=== PATIENT | male | born 1985 | race Two or more races ===

== ENCOUNTER 2016-07-05 22:48 | Emergency (ER) | payer OTHER ==
[2016-07-05 22:56] VITALS: BMI 25.0
--- NOTE | 2016-07-05 23:10 | PDOC ---
History of Present Illness - History of Present Illness Initial Comments: 07/05/16 23:32 The patient is a 30 year old male, with a significant past medical history of cluster headaches, who presents to the emergency department with persistent headaches followed by generalized weakness and dizziness for a few days. The patient denies any pain at this time, but reports his headaches as squeezing localized to the left side of his head with intermittent pressure behind his right eye. He also reports intermittent dizziness associated with his headaches , and states that he feels generally weak after the headache subsides. He denies photophobia. He reports experiencing similar headaches last summer, which he was evaluated for at [facility] and diagnosed with cluster headaches. He states he was referred to a neurologist and prescribed some medication. He denies ever making an appointment with the neurologist. He reports the medication significantly alleviated his headaches in the past and requests for a new prescription. He denies chest pain, shortness of breath. He denies fever, chills, nausea, vomit, diarrhea and constipation. He denies dysuria, frequency, urgency and hematuria. Allergies: NKDA Family Hx: migraines <Petrona Alejandro - Last Filed: 07/05/16 23:46> <Luis Eduardo Yanes - Last Filed: 07/05/16 23:50> - General Chief Complaint: Headache Stated Complaint: HEADACHE Time Seen by Provider: 07/05/16 23:10 Past History <Petrona Alejandro - Last Filed: 07/05/16 23:46> - Past Medical History Other medical history: cluster headaches - Psycho/Social/Smoking Cessation Hx Suicidal Ideation: No Smoking History: Current every day smoker Information on smoking cessation initiated: No <Luis Eduardo Yanes - Last Filed: 07/05/16 23:50> - Past Medical History Allergies/Adverse Reactions: Allergies Allergy/AdvReac Type Severity Reaction Status Date / Time Egg Derived Allergy Verified 07/05/16 22:54 peanut Allergy Verified 07/05/16 22:54 seafood Allergy Uncoded 07/05/16 22:54 Home Medications: Ambulatory Orders NK [No Known Home Medication] 07/05/16 Review of Systems - Review of Systems Able to Perform ROS?: Yes Comments:: 07/05/16 23:33 CONSTITUTIONAL: No fever, no chills, no fatigue EYES: No visual changes ENT: No ear pain, no sore throat CARDIOVASCULAR: No chest pain, no palpitations RESPIRATORY: No cough, no SOB GI: No abdominal pain, no nausea, no vomiting, no constipation, no diarrhea GENITOURINARY: No dysuria, no frequency, no hematuria MUSKULOSKELETAL: No backpain, no joint pain, no myalgias SKIN: No rash NEURO: (+) persistent headache <Petrona Alejandro - Last Filed: 07/05/16 23:46> *Physical Exam - Vital Signs Last Vital Signs Temp Pulse Resp BP Pulse Ox 97.6 F 85 16 105/67 99 07/05/16 22:55 07/05/16 22:55 07/05/16 22:55 07/05/16 22:55 07/05/16 22:55 - Physical Exam Comments: 07/05/16 23:33 CONSTITUTIONAL: Well-appearing; well-nourished; in no apparent distress HEAD: Normocephalic; atraumatic EYES: PERRL; EOM intact ENMT: External appears normal; normal oropharynx NECK: Supple; non-tender; no cervical lymphadenopathy CARD: Normal S1, S2; no murmurs, rubs, or gallops RESP: Normal chest excursion with respiration; breath sounds clear and equal bilaterally; no wheezes, rhonchi, or rales ABD: Soft, non-distended; non-tender; no palpable organomegaly, no palpable hernias EXT: Normal ROM in all four extremities; non-tender to palpation; distal pulses intact SKIN: Warm, dry, no rash <Petrona Alejandro - Last Filed: 07/05/16 23:46> - Vital Signs Last Vital Signs Temp Pulse Resp BP Pulse Ox 97.6 F 85 16 105/67 99 07/05/16 22:55 07/05/16 22:55 07/05/16 22:55 07/05/16 22:55 07/05/16 22:55 - Physical Exam Comments: NEURO: Cranial nerves II through XII are grossly intact; motor is 5 of 54; no pronation drift; gait is stable; negative Romberg; normal cerebellar function bilaterally. <Luis Eduardo Yanes - Last Filed: 07/05/16 23:50> Medical Decision Making - Medical Decision Making 07/05/16 23:49 Patient is a well-appearing 30-year-old male who presents with generalized weakness and intermittent dizziness after the resolution of a hemicranial headache that had lasted for 2 days. In the ER, patient is awake and alert, afebrile, with normal stable vital signs. Serial neurological exams reveal no focal deficits. There is no evidence of meningismus. Patient's symptoms are not consistent with worsening headache of his life as per patient. I do not suspect meningitis or subarachnoid hemorrhage at this time. Patient been seen and treated [facility] for similar symptoms several months previously but failed to follow-up at this time, there are no acute issues and patient is encouraged to hydrate himself aggressively and follow up with neurology promptly.. <Luis Eduardo Yanes - Last Filed: 07/05/16 23:50> *DC/Admit/Observation/Transfer - Attestations Scribe Attestion: 07/05/16 23:34 Documentation prepared by Petrona Alejandro, acting as medical records assistant for Luis Eduardo Yanes MD <Petrona Alejandro - Last Filed: 07/05/16 23:46> - Attestations Physician Attestion: 07/05/16 23:49 The documentation was prepared by the scribe under my direct supervision. I have reviewed the documentation which correctly represents the findings, medical decision-making and critical action taken by me. <Luis Eduardo Yanes - Last Filed: 07/05/16 23:50> Diagnosis at time of Disposition: Headache Qualifiers: Headache type: unspecified Headache chronicity pattern: episodic headache Intractability: not intractable Qualified Code(s): R51 - Headache - Discharge Dispostion Disposition: HOME Condition at time of disposition: Stable - Referrals Referrals: Garfield Coates MD [Staff Physician] - - Patient Instructions Printed Discharge Instructions: DI for Headache - Post Discharge Activity Work/School Note: Back to Work
[2016-07-05 23:41] VITALS: BP 126/61; PULSE 105; TEMP 98.3
== END 2016-07-05 23:40 | disposition home or self-care (01) ==
LOC: JER 22:48
DX: G44.009 Cluster headache syndrome, unspecified, not intractable (principal); F17.210 Nicotine dependence, cigarettes, uncomplicated
CPT/HCPCS: 99281-25

== ENCOUNTER 2022-11-27 20:06 | Emergency (ER) | payer OTHER ==
[2022-11-27 20:19] VITALS: BP 116/72; PULSE 67; RESP 18; TEMP 97; BMI 25.9
[2022-11-27 21:36] LABS: BASO % 0.5 % (0-2.0); EOS % 0.1 % (0-4.5); HEMATOCRIT 41.6 % (35.4-49); HEMOGLOBIN 13.6 GM/dL (11.7-16.9); LYMPH % 10.2 % (8-40); MCHC 32.7 g/dl (32.0-35.9); MEAN CELL VOLUME 91.7 fl (80-96); MEAN PLT VOLUME 8.5 fl (7.5-11.1); NEUT % 81.2 % (42.8-82.8); PLATELET COUNT 213 10^3/uL (134-434); RBC 4.54 M/mm3 (4.00-5.60); RDW 14.2 % (11.9-15.9); WHITE BLOOD COUNT 11.7 K/mm3 (4.0-10.0)
[2022-11-27 22:19] LABS: CHLORIDE 108 mmol/L (98-107); POTASSIUM 4.1 mmol/L (3.5-5.1); SODIUM 140 mmol/L (136-145)
[2022-11-27 22:22] LABS: ALBUMIN 3.5 g/dl (3.4-5.0); ANION GAP 5 MMOL/L (8-16); CALCIUM 9.3 mg/dL (8.5-10.1); CO2 27 mmol/L (21-32); GLUCOSE,RANDOM 81 mg/dL (74-106)
[2022-11-27 22:25] LABS: CREATININE 0.9 mg/dL (0.55-1.3); SGOT/AST 18 U/L (15-37); SGPT/ALT 23 U/L (13-61)
[2022-11-27 22:27] LABS: BILIRUBIN,TOTAL < 0.1 mg/dL (0.2-1); TOT PROT 6.8 g/dl (6.4-8.2)
[2022-11-27 22:28] LABS: ALK PHOS 60 U/L (45-117)
== END 2022-11-27 22:16 | disposition left against medical advice (07) ==
LOC: JER 20:06
DX: K62.5 Hemorrhage of anus and rectum (principal); R10.9 Unspecified abdominal pain
CPT/HCPCS: 36415; 80053; 82272; 85025; 99283-25

== ENCOUNTER 2023-01-11 22:49 | Inpatient (IN) | payer OTHER ==
[2023-01-11] MEDS ORDERED: ACETAMINOPHEN 1000 MG/100 ML BAG IVPB ONE (23:42)
[2023-01-11] MEDS ORDERED: SODIUM CHLORIDE 1,000 ML IV STA (23:42)
[2023-01-11] MEDS ORDERED: FAMOTIDINE 20 MG/50 ML IVPB 20 MG/50 ML MG IVPB ONE ×2 (23:43→23:45)
[2023-01-11] MEDS ORDERED: ACETAMINOPHEN INJECTION 100 ML IVPB ONE (23:45)
[2023-01-12 00:47] LABS: BASO % 0.5 % (0-2.0); EOS % 0.4 % (0-4.5); HEMATOCRIT 44.2 % (35.4-49); LYMPH % 8.5 % (8-40); MCHC 33.9 g/dl (32.0-35.9); MEAN CELL VOLUME 88.5 fl (80-96); MEAN PLT VOLUME 8.7 fl (7.5-11.1); MONO % 12.5 % (3.8-10.2); NEUT % 78.1 % (42.8-82.8); PLATELET COUNT 235 10^3/uL (134-434); RBC 4.99 M/mm3 (4.00-5.60); RDW 14.3 % (11.9-15.9); WHITE BLOOD COUNT 13.4 K/mm3 (4.0-10.0)
[2023-01-12 00:55] LABS: INR 1.26 (0.83-1.09); PROTHROMBIN TIME (PATIENT) 14.6 SEC (9.7-13.0)
[2023-01-12 00:58] LABS: ACTIVATED PTT 31.2 SECONDS (25.2-36.5)
[2023-01-12 01:25] LABS: POTASSIUM 3.6 mmol/L (3.5-5.1)
[2023-01-12 01:27] LABS: ALBUMIN 3.6 g/dl (3.4-5.0); CALCIUM 9.1 mg/dL (8.5-10.1)
[2023-01-12 01:33] LABS: BILIRUBIN,TOTAL 0.3 mg/dL (0.2-1); TOT PROT 7.4 g/dl (6.4-8.2)
[2023-01-12] MEDS ORDERED: SODIUM CHLORIDE 1,000 ML IV STA (03:41)
[2023-01-12 04:15] LABS: URINE APPEARANCE CLEAR; URINE BILIRUBIN NEGATIVE (NEGATIVE); URINE COLOR YELLOW; URINE GLUCOSE (UA) NEGATIVE (NEGATIVE); URINE KETONE TRACE (NEGATIVE); URINE LEUK ESTERASE NEGATIVE (NEGATIVE); URINE NITRITE NEGATIVE (NEGATIVE); URINE PROTEIN TRACE (NEGATIVE)
[2023-01-12] MEDS ORDERED: ACETAMINOPHEN 1000 MG/100 ML BAG IVPB PRN ×2 (10:01→10:49)
[2023-01-12] MEDS ORDERED: CEFTRIAXONE 1 GM/50 ML BAG ONE (12:06)
[2023-01-12] MEDS: CEFTRIAXONE 1 GM in DEXTROSE 5%-WATER - 50 ML IVPB SCH (12:09)
[2023-01-12] MEDS ORDERED: ACETAMINOPHEN INJECTION 100 ML IVPB ONE (16:44)
[2023-01-13 03:15] VITALS: BMI 21.3
[2023-01-13 06:58] LABS: BASO % 0.3 % (0-2.0); EOS % 2.2 % (0-4.5); HEMATOCRIT 43.2 % (35.4-49); HEMOGLOBIN 14.4 GM/dL (11.7-16.9); LYMPH % 12.2 % (8-40); MCHC 33.3 g/dl (32.0-35.9); MEAN CELL VOLUME 90.2 fl (80-96); MEAN PLT VOLUME 7.8 fl (7.5-11.1); MONO % 16.1 % (3.8-10.2); NEUT % 69.2 % (42.8-82.8); PLATELET COUNT 232 10^3/uL (134-434); RBC 4.79 M/mm3 (4.00-5.60); RDW 14.1 % (11.9-15.9); WHITE BLOOD COUNT 7.1 K/mm3 (4.0-10.0)
[2023-01-13 07:14] LABS: POTASSIUM 3.8 mmol/L (3.5-5.1)
[2023-01-13 07:21] LABS: ALBUMIN 3.3 g/dl (3.4-5.0); BLOOD UREA NITROGEN 7.2 mg/dL (7-18); CALCIUM 9.1 mg/dL (8.5-10.1); MAGNESIUM 2.3 mg/dL (1.8-2.4)
[2023-01-13 07:24] LABS: CREATININE 0.7 mg/dL (0.55-1.3); PHOSPHOROUS 2.8 mg/dL (2.5-4.9)
[2023-01-13 07:25] LABS: BILIRUBIN,TOTAL 0.3 mg/dL (0.2-1)
[2023-01-13 07:27] LABS: TOT PROT 6.9 g/dl (6.4-8.2)
[2023-01-13] MEDS: CEFTRIAXONE 1 GM in DEXTROSE 5%-WATER - 50 ML IVPB SCH (09:11)
[2023-01-13] MEDS ORDERED: ENOXAPARIN NA (PORCINE) 40 MG/0.4 ML DISP.SYRIN SQ SCH (10:00)
[2023-01-13] MEDS ORDERED: PHYTONADIONE 10 MG/1 ML AMP IVPB ONE (11:16)
[2023-01-13] MEDS: PANTOPRAZOLE SODIUM 40 MG VIAL IVPUSH SCH (11:46)
[2023-01-13] MEDS: THIAMINE HCL 200 MG/2 ML VIAL IVPB SCH (11:46)
[2023-01-13] MEDS: NICOTINE 21 MG/24 HOURS TOPICAL PATCH TD SCH (11:46)
[2023-01-13] MEDS: LACTATED RINGERS SOLUTION 1,000 ML/1,000 ML INFUS.BAG IV SCH (11:48)
[2023-01-13] MEDS ORDERED: PEG 3350/NA SULF BICARB CL/KCL 4000 ML SOLN.RECON PO ONE (13:00)
[2023-01-13] MEDS ORDERED: LORazepam 1 MG TABLET PO PRN (17:30)
[2023-01-13] MEDS ORDERED: LORazepam 2 MG TABLET PO PRN (17:30)
[2023-01-13] MEDS ORDERED: BISACODYL 5 MG TABLET.DR (FP) PO ONE (18:00)
[2023-01-13] MEDS: TRIAMCINOLONE ACET 0.025% OINTMENT 15 GM TUBE TP SCH (21:45)
[2023-01-14] MEDS: LACTATED RINGERS SOLUTION 1,000 ML/1,000 ML INFUS.BAG IV SCH ×2 (04:04→13:22)
[2023-01-14 09:38] LABS: INR 1.3 (0.83-1.09)
[2023-01-14] MEDS ORDERED: MIDAZOLAM HCL 2 MG/2 ML SINGLE DOSE VIAL ONE (11:00)
[2023-01-14 11:47] VITALS: RESP 18
[2023-01-14] MEDS: THIAMINE HCL 200 MG/2 ML VIAL IVPB SCH (12:55)
[2023-01-14] MEDS: NICOTINE 21 MG/24 HOURS TOPICAL PATCH TD SCH (12:55)
[2023-01-14] MEDS: PANTOPRAZOLE SODIUM 40 MG VIAL IVPUSH SCH (12:55)
[2023-01-14] MEDS: CEFTRIAXONE 1 GM in DEXTROSE 5%-WATER - 50 ML IVPB SCH (12:56)
[2023-01-14] MEDS: TRIAMCINOLONE ACET 0.025% OINTMENT 15 GM TUBE TP SCH (13:20)
[2023-01-14 13:53] VITALS: BP 132/73; PULSE 71; TEMP 97.4
== END 2023-01-14 15:46 | disposition home or self-care (01) | DRG 254 ==
LOC: JER 22:49 → JERBED 01-12 05:07 → OBSVTOIN 01-12 11:16 → J4S 01-13 02:43
PROVIDERS: ADMIT Internal Medicine; ATTEND Internal Medicine
PROC: 0DBN8ZZ Excision of Sigmoid Colon, Via Natural or Artificial Opening Endoscopic (ICD-10-PCS; principal; 2023-01-14 13:00)
DX: K64.8 Other hemorrhoids (principal); R53.1 Weakness; R55 Syncope and collapse; R50.9 Fever, unspecified; D72.829 Elevated white blood cell count, unspecified; R51.9 Headache, unspecified; E86.0 Dehydration; F12.90 Cannabis use, unspecified, uncomplicated; F19.20 Other psychoactive substance dependence, uncomplicated; F17.210 Nicotine dependence, cigarettes, uncomplicated; F43.10 Post-traumatic stress disorder, unspecified; L30.9 Dermatitis, unspecified; R19.7 Diarrhea, unspecified; R93.5 Abnormal findings on diagnostic imaging of other abdominal regions, including retroperitoneum; K63.5 Polyp of colon
CPT/HCPCS: 0241U-QW; 36415; 70450-TC; 74177-TC; 80053; 81003; 82272; 83516; 83690; 83735; 84100; 85025; 85610; 85730; 86140; 86255; 86671; 86705; 86803; 86850; 86900; 86901; 87040; 87077; 87086; 87340; 87517; 88305-TC; 93005; 93010; 99285-25; G0378; Q9967

== ENCOUNTER 2023-08-18 00:51 | Emergency (ER) | payer OTHER ==
[2023-08-18 00:57] VITALS: BP 118/87; PULSE 106; RESP 17; TEMP 98.8; BMI 25.8
== END 2023-08-18 04:36 | disposition home or self-care (01) ==
LOC: JER 00:51
DX: F14.90 Cocaine use, unspecified, uncomplicated (principal); F10.90 Alcohol use, unspecified, uncomplicated; F17.210 Nicotine dependence, cigarettes, uncomplicated; R00.0 Tachycardia, unspecified
CPT/HCPCS: 93005; 93010; 99283-25